=== PATIENT | female | born 1990 | race American Indian/Alaskan Native ===

== ENCOUNTER 2018-11-27 22:11 | Emergency (ER) | payer SELFPAY ==
[2018-11-27 22:19] VITALS: BP 157/92
--- NOTE | 2018-11-27 22:56 | Emergency Department Report ---
ED Abdominal Pain HPI - General Chief Complaint: Upper Respiratory Infection Stated Complaint: SORE THROAT/CONGESTED Time Seen by Provider: 11/27/18 22:26 Source: patient Mode of arrival: Ambulatory Limitations: No Limitations - Related Data Allergies Allergy/AdvReac Type Severity Reaction Status Date / Time chocolate flavor Allergy Unknown Verified 11/27/18 22:20 kiwi Allergy Unknown Verified 11/27/18 22:20 pineapple Allergy Unknown Verified 11/27/18 22:20 ED Review of Systems ROS: Stated complaint: SORE THROAT/CONGESTED Other details as noted in HPI ED Past Medical Hx - Past Medical History Previous Medical History?: No - Surgical History Past Surgical History?: Yes Additional Surgical History: - Social History Smoking Status: Never Smoker Substance Use Type: Alcohol ED Physical Exam - General Limitations: No Limitations ED Course Vital Signs 11/27/18 22:12 Temperature 98.0 F Pulse Rate 100 H Respiratory 18 Rate Blood Pressure 157/92 O2 Sat by Pulse 100 Oximetry Critical care attestation.: If time is entered above; I have spent that time in minutes in the direct care of this critically ill patient, excluding procedure time. ED Disposition Condition: Stable
[2018-11-27] MEDS ORDERED: TYLENOL/CODEINE PO ONE (22:58)
[2018-11-27] MEDS ORDERED: BENADRYL PO ONE (22:58)
[2018-11-27] MEDS ORDERED: DELTASONE PO ONE (22:58)
--- NOTE | 2018-11-27 23:00 | Emergency Department Report ---
Minor Respiratory - HPI Chief Complaint: Upper Respiratory Infection Stated Complaint: SORE THROAT/CONGESTED Time Seen by Provider: 11/27/18 22:26 Duration: greater than 1 week Pain Location: Throat, Other (neck pain 9/10) Severity: severe Minor Respiratory: Yes Rhinorrhea (nasal congestion), Yes Sore Throat (7/10), Yes Able to Tolerate Fluids, Yes Cough, No Ear Pain, No Sick Contacts, No Hemoptysis, No Chest Pain, No Shortness of Breath, No Fever Other History: This is a 28-year-old female here report that she is having cough and congestion for over week. She suggested decreased appetite. Sore throat and productive cough. She denies any fever. She is reporting body ache and her voice is hoarse. She is reporting that her neck hurts and denies any drooling, shortness of breath or chest pain. She said cough is worse at night. Sore throats and neck pain is worse with cough and an swallowing. Pain is achy and no alleviating factors. She did not take any medication prior to coming to the emergency room. Patient denies any medical problems. ED Review of Systems ROS: Stated complaint: SORE THROAT/CONGESTED Other details as noted in HPI Constitutional: denies: chills, fever Eyes: denies: eye discharge ENT: throat pain, congestion. denies: ear pain, dental pain Respiratory: cough. denies: shortness of breath, SOB with exertion, SOB at rest, stridor, wheezing Cardiovascular: denies: chest pain, palpitations, dyspnea on exertion, edema, syncope Gastrointestinal: denies: abdominal pain, nausea, vomiting, hematemesis, hematochezia Genitourinary: denies: dysuria, hematuria Musculoskeletal: myalgia. denies: back pain, joint swelling, arthralgia Skin: denies: rash Neurological: denies: headache, numbness, paresthesias, abnormal gait, vertigo ED Past Medical Hx - Past Medical History Previous Medical History?: No - Surgical History Past Surgical History?: Yes Additional Surgical History: - Family History Family history: hypertension - Social History Smoking Status: Never Smoker Substance Use Type: Alcohol - Medications Home Medications: Home Medications Medication Instructions Recorded Confirmed Last Taken Type Cetirizine HCl [ZyrTEC] 10 mg PO QAM 14 Days #14 capsule 11/28/18 Unknown Rx Fluticasone [Flonase] 1 spray NS QDAY 14 Days #1 bottle 11/28/18 Unknown Rx Ibuprofen [Motrin] 800 mg PO Q8HR PRN #12 tablet 11/28/18 Unknown Rx guaiFENesin/CODEINE [Robitussin AC] 10 ml PO QHS PRN #70 oral.liqd 11/28/18 Unknown Rx predniSONE [Prednisone] 10 mg PO QAM 6 Days #1 tab.ds.pk 11/28/18 Unknown Rx Minor Respiratory Exam - Exam General: Vital signs noted. No distress. Alert and acting appropriately. This is 28-year-old female well-nourished well-developed in no acute distress. Patient is nontoxic in appearance HEENT: Yes Pharyngeal Erythema (mild erythema), Yes Moist Mucous Membranes (uvula midline and no DESK REPRESENTATIVE), Yes Rhinorrhea (nasal congestion and runny nose), Yes Frontal Tenderness (bilateral), No Pharyngeal Exudates, No Conjuctival Injection, No Maxillary Tenderness Ear: Neither TM Bulge (bilateral TM congested), Neither TM Erythema, Neither EAC Pain, Neither EAC Discharge Neck: Yes Supple (full range of motion, nontender to palpate C-spine ), No Adenopathy Lungs: Yes Good Air Exchange, Yes Cough (congested cough), No Wheezes, No Ronchi, No Stridor, No Labored Respirations, No Retractions Heart: Yes Regular (S1 and S2.), No Murmur Abdomen: Yes Normal Bowel Sounds (normal bowel sounds in all quadrants), No Tenderness (nontender to palpate in all quadrants, no guarding or rebound tenderness.), No Peritoneal Signs Skin: No Rash, No Edema Neurologic: Alert and oriented 3, no deficits. Musculoskeletal: Unremarkable. No cce. + 2 pulses in all extremities, no neurovascular compromise ED Course Vital Signs 11/27/18 22:12 Temperature 98.0 F Pulse Rate 100 H Respiratory 18 Rate Blood Pressure 157/92 O2 Sat by Pulse 100 Oximetry - Reevaluation(s) Reevaluation #1: 11/27/18 23:31 Patient given Tylenol with codeine syrup 10 mL, Benadryl 50 mg by mouth and Deltasone 60 mg by mouth for cough and cold symptoms. Reevaluation #2: 11/28/18 00:33 Patient states she is feeling better. Pain is better. Strep was negative and x-rays normal. ED Medical Decision Making - Lab Data Lab Results 11/27/18 Range/Units 22:57 Group A Strep Rapid Negative (Negative) - Radiology Data Radiology results: report reviewed Two-view chest x-ray dictated by radiologist and report reviewed by myself. Please see details below Findings [facility] [address] [place] [address] XRay Report Signed Patient: DENZEL HURLEY MR#: [id number] : 1990 Acct:[id number] Age/Sex: 28 / F ADM Date: 11/27/18 Loc: ED Attending Dr: Ordering Physician: EREN SERNA Date of Service: 11/27/18 Procedure(s): XR chest routine 2V Accession Number(s): [id number] cc: EREN SERNA Fluoro Time In Minutes: FINAL REPORT EXAM: XR CHEST ROUTINE 2V HISTORY: cough and chills 10 days TECHNIQUE: Two view chest PA and lateral PRIORS: None. FINDINGS: Cardiac and mediastinal contours are unremarkable. No focal pulmonary infiltrate is identified. No pleural fluid collection seen. Pulmonary vasculature is unremarkable. IMPRESSION: Negative two-view chest Transcribed By: JINA Dictated By: GABRIELA CEDILLO MD Electronically Authenticated By: GABRIELA CEDILLO MD Signed Date/Time: 11/27/182347 DD/ 49 TD/TT: 11/27/182349 - Medical Decision Making This is a 28-year-old female here complaining of cold and cough symptoms. Physical finding for sinusitis with cough, pharyngitis. Strep is negative and chest x-ray reveals normal findings. Please see x-ray results under report section. Patient was given Deltasone 60 mg by mouth, Benadryl 50 mg by mouth and Tylenol with codeine 10 mL by mouth. She is feeling better. Vital signs stable she is afebrile. Patient discharged home with her significant other with prescription for Augmentin, Flonase, Zyrtec, Motrin and prednisone Dosepak. I explained to her the results of her x-ray and also strep test she was understanding and also inform her that she is to follow-up with her primary care physician in 2-3 days. - Differential Diagnosis PNA, bronchitis, strep, sinusitis, urinary cough and congestion Critical care attestation.: If time is entered above; I have spent that time in minutes in the direct care of this critically ill patient, excluding procedure time. ED Disposition Clinical Impression: Cough in adult Sinusitis, acute Qualifiers: Sinusitis location: unspecified location Recurrence: not specified as recurrent Qualified Code(s): J01.90 - Acute sinusitis, unspecified Pharyngitis Qualifiers: Pharyngitis/tonsillitis etiology: unspecified etiology Qualified Code(s): J02.9 - Acute pharyngitis, unspecified Disposition: TO HOME OR SELFCARE Is pt being admited?: No Does the pt Need Aspirin: No Condition: Stable Instructions: Acute Cough (ED), Sinusitis (ED), Pharyngitis (ED) Additional Instructions: Please take antibiotic as prescribed Follow-up with primary care physician in 2-3 days Take Motrin as prescribed for pain but take with food Take Zyrtec and Flonase to relieve nasal and ear congestion Take Medrol Dosepak and guaifenesin with codeine to help with cough but please do not drive or operate heavy machinery while taking cough medicine as this medication causes drowsiness If your condition worsens to include difficulty breathing, swallowing, chest pain, nausea and vomiting and fever does not relief with Motrin please return to the emergency room [facility]. Gargle with warm salt water and this will help to relieve sore throat Referrals: QUYEN HAY MD [Primary Care Provider] - 2-3 Days [facility] [Outside] - 2-3 Days Forms: Accompanied Note, Work/School Release Form(ED)
--- NOTE | 2018-11-27 23:48 | XRay Report ---
FINAL REPORT EXAM: XR CHEST ROUTINE 2V HISTORY: cough and chills 10 days TECHNIQUE: Two view chest PA and lateral PRIORS: None. FINDINGS: Cardiac and mediastinal contours are unremarkable. No focal pulmonary infiltrate is identified. No pleural fluid collection seen. Pulmonary vasculature is unremarkable. IMPRESSION: Negative two-view chest
== END 2018-11-28 01:00 | disposition home or self-care (01) ==
LOC: ED 22:11
DX: J01.90 Acute sinusitis, unspecified (principal); J02.9 Acute pharyngitis, unspecified; Z91.018 Allergy to other foods; M79.10 Myalgia, unspecified site
CPT/HCPCS: 71046; 87116; 87430; 99284; J7512

== ENCOUNTER 2019-09-06 22:50 | Emergency (ER) | payer SELFPAY ==
[2019-09-06 23:54] LABS: Basophils % (Auto) 0.3 % (0.0-1.8); Eosinophils # (Auto) 0.1 K/mm3 (0.0-0.4); Eosinophils % (Auto) 1.5 % (0.0-4.3); Hematocrit 35.7 % (30.3-42.9); Hemoglobin 11.9 gm/dl (10.1-14.3); Lymphocytes # (Auto) 2.9 K/mm3 (1.2-5.4); Lymphocytes % (Auto) 42.6 % (13.4-35.0); Mean Corpuscular HGB Conc 33 % (30-34); Mean Corpuscular Volume 88 fl (79-97); Monocytes # (Auto) 0.4 K/mm3 (0.0-0.8); Monocytes % (Auto) 6.1 % (0.0-7.3); Platelet Count 238 K/mm3 (140-440); Red Blood Count 4.08 M/mm3 (3.65-5.03); Red Cell Distribution Width 14.8 % (13.2-15.2)
[2019-09-07 00:13] LABS: Alanine Aminotransferase 7 units/L (7-56); Albumin 4.3 g/dL (3.9-5); BUN/Creatinine Ratio 10; Blood Urea Nitrogen 6 mg/dL (7-17); Calcium 9.3 mg/dL (8.4-10.2); Hemolysis Index 4
[2019-09-07] MEDS ORDERED: METOCLOPRAMIDE 10 MG TAB PO ONE (01:38)
[2019-09-07] MEDS ORDERED: ACETAMINOPHEN 500 MG TAB PO ONE (01:38)
--- NOTE | 2019-09-07 01:40 | Emergency Department Report ---
HPI - General Chief Complaint: Abdominal Pain Time Seen by Provider: 09/07/19 01:24 - HPI HPI: Room 8 The patient is a 28-year-old female presenting with chief complaint of nausea vomiting and abdominal pain. The patient states she's been "not feeling good" for the past 2-3 weeks. Patient states his symptoms include feeling lightheaded with nausea and vomiting. The patient states for the past 2-3 days she's had some suprapubic and right-sided discomfort. Patient denies dysuria or hematuria. Patient states she noticed some clear white discharge in the toilet bowl. Patient denies vaginal bleeding. Patient says her last cycle occurred from July 29 through August 06 and she is usually regular. The patient states she took a prexy test at home 2 weeks ago and it was negative. Location: [See above] Duration: [See above] Quality: [See above] Severity: [See above] Timing: [See above] Context: [See above] Modifying factors: [See above] Associated signs and symptoms: [see above] ED Past Medical Hx - Past Medical History Previous Medical History?: No - Surgical History Past Surgical History?: Yes Additional Surgical History: , right wrist - Family History Family history: no significant - Social History Smoking Status: Never Smoker Substance Use Type: Alcohol (occasional), Marijuana - Medications Home Medications: Home Medications Medication Instructions Recorded Confirmed Last Taken Type Cetirizine HCl [ZyrTEC] 10 mg PO QAM 14 Days #14 capsule 11/28/18 Unknown Rx Fluticasone [Flonase] 1 spray NS QDAY 14 Days #1 bottle 11/28/18 Unknown Rx Ibuprofen [Motrin] 800 mg PO Q8HR PRN #12 tablet 11/28/18 Unknown Rx guaiFENesin/CODEINE [Robitussin AC] 10 ml PO QHS PRN #70 oral.liqd 11/28/18 Unknown Rx predniSONE [Prednisone] 10 mg PO QAM 6 Days #1 tab.ds.pk 11/28/18 Unknown Rx Metoclopramide [Reglan] 10 mg PO TID PRN #20 tab 09/07/19 Unknown Rx Nitrofurantoin Sutter/M-Cryst 100 mg PO Q12HR #20 capsule 09/07/19 Unknown Rx [Macrobid CAP] ED Review of Systems ROS: Stated complaint: ABDOMINAL PAIN/FATIGUE,VOMITING Other details as noted in HPI Constitutional: no symptoms reported Eyes: denies: eye pain ENT: denies: throat pain Respiratory: no symptoms reported Cardiovascular: denies: chest pain Endocrine: no symptoms reported Gastrointestinal: abdominal pain, nausea, vomiting Genitourinary: denies: dysuria, hematuria, abnormal menses Musculoskeletal: denies: back pain Neurological: denies: headache Physical Exam - Physical Exam Vital Signs: Vital Signs 09/06/19 09/07/19 23:10 01:25 Temperature 98.1 F 98.6 F Pulse Rate 74 78 Respiratory 20 12 Rate Blood Pressure 129/64 Blood Pressure 124/64 [Left] O2 Sat by Pulse 100 100 Oximetry Physical Exam: GENERAL: The patient is well-developed well-nourished female lying on stretcher not appearing to be in acute distress. [] HEENT: Normocephalic. Atraumatic. Extraocular motions are intact. Patient has moist mucous membranes. NECK: Supple. Trachea midline CHEST/LUNGS: Clear to auscultation. There is no respiratory distress noted. HEART/CARDIOVASCULAR: Regular. There is no tachycardia. There is no gallop rub or murmur. ABDOMEN: Abdomen is soft, nontender. Patient has normal bowel sounds. There is no abdominal distention. SKIN: There is no rash. There is no edema. There is no diaphoresis. NEURO: The patient is awake, alert, and oriented. The patient is cooperative. The patient has normal speech MUSCULOSKELETAL: There is no CVA tenderness. There is no evidence of acute injury. ED Course Vital Signs 09/06/19 09/07/19 23:10 01:25 Temperature 98.1 F 98.6 F Pulse Rate 74 78 Respiratory 20 12 Rate Blood Pressure 129/64 Blood Pressure 124/64 [Left] O2 Sat by Pulse 100 100 Oximetry ED Medical Decision Making - Lab Data Result diagrams: 09/06/19 23:15 09/06/19 23:15 Laboratory Tests 09/06/19 09/06/19 09/06/19 23:15 23:15 23:15 WBC 6.8 RBC 4.08 Hgb 11.9 Hct 35.7 MCV 88 MCH 29 MCHC 33 RDW 14.8 Plt Count 238 Lymph % (Auto) 42.6 H Sutter % (Auto) 6.1 Eos % (Auto) 1.5 Baso % (Auto) 0.3 Lymph # 2.9 Sutter # 0.4 Eos # 0.1 Baso # 0.0 Seg Neutrophils % 49.5 Seg Neutrophils # 3.4 Sodium 139 Potassium 3.9 Chloride 103.4 Carbon Dioxide 25 Anion Gap 15 BUN 6 L Creatinine 0.6 L Estimated GFR > 60 BUN/Creatinine Ratio 10 Glucose 90 Calcium 9.3 Total Bilirubin 0.30 AST 13 ALT 7 Alkaline Phosphatase 52 Total Protein 7.5 Albumin 4.3 Albumin/Globulin Ratio 1.3 HCG, Qual Positive HCG, Quant Urine Color Urine Turbidity Urine pH Ur Specific [place] Urine Protein Urine Glucose (UA) Urine Ketones Urine Blood Urine Nitrite Urine Bilirubin Urine Urobilinogen Ur Leukocyte Esterase Urine WBC (Auto) Urine RBC (Auto) U Epithel Cells (Auto) Urine Bacteria (Auto) Urine Mucus 09/07/19 09/07/19 00:00 02:48 WBC RBC Hgb Hct MCV MCH MCHC RDW Plt Count Lymph % (Auto) Sutter % (Auto) Eos % (Auto) Baso % (Auto) Lymph # Sutter # Eos # Baso # Seg Neutrophils % Seg Neutrophils # Sodium Potassium Chloride Carbon Dioxide Anion Gap BUN Creatinine Estimated GFR BUN/Creatinine Ratio Glucose Calcium Total Bilirubin AST ALT Alkaline Phosphatase Total Protein Albumin Albumin/Globulin Ratio HCG, Qual HCG, Quant 565.0 H Urine Color Yellow Urine Turbidity Slightly-cloudy Urine pH 6.0 Ur Specific [place] 1.014 Urine Protein <15 mg/dl Urine Glucose (UA) Neg Urine Ketones Neg Urine Blood Sm Urine Nitrite Neg Urine Bilirubin Neg Urine Urobilinogen < 2.0 Ur Leukocyte Esterase Lg Urine WBC (Auto) 119.0 H Urine RBC (Auto) 36.0 U Epithel Cells (Auto) 3.0 Urine Bacteria (Auto) 1+ Urine Mucus Few - Radiology Data Radiology results: report reviewed (pelvic ultrasound), image reviewed (pelvic ultrasound) [facility] [address] [place] [address] Ultrasound Report Signed Patient: DENZEL HURLEY R#: [id number] : 1990 Acct:[id number] Age/Sex: 28 / F ADM Date: 09/06/19 Loc: ED Attending Dr: Ordering Physician: ALFRED SWIFT MD Date of Service: 09/07/19 Procedure(s): US OB transvaginal Accession Number(s): [id number] cc: ALFRED SWIFT MD Pelvic ultrasound INDICATION: , abdominal pain COMPARISON: None TECHNIQUE: Transabdominal and endovaginal FINDINGS: On transabdominal study the uterus measures 11.3 x 5.9 x 7.4 cm. The endometrial cavity is prominent with a diameter of 2.6 cm. However, I do not see evidence of intrauterine . Only a trace of fluid is seen in the cervical canal and not in the uterine body or fundus. Right ovary measures 3.6 cm in length and shows a 15 mm mildly complex cyst. Left ovary measures 3.4 cm in length and shows a 17 mm mildly complex cyst. No free fluid is seen. IMPRESSION: No intrauterine can be verified. Small bilateral ovarian cysts are seen. Ectopic cannot be excluded though I do not see strong evidence of that process. Clinical correlation is suggested. Signer Name: Hira Resendiz MD Signed: 09/07/2019 3:45 AM Workstation Name: [email or web address] Transcribed By: GJ Dictated By: Hira Resendiz MD Electronically Authenticated By: Hira Resendiz MD Signed Date/Time: 09/07/19344 DD/ 2 TD/TT: - Differential Diagnosis , ectopic , UTI Critical care attestation.: If time is entered above; I have spent that time in minutes in the direct care of this critically ill patient, excluding procedure time. ED Disposition Clinical Impression: , UTI (urinary tract infection), Abdominal pain Disposition: - TO HOME OR SELFCARE Is pt being admited?: No Does the pt Need Aspirin: No Condition: Stable Instructions: Abdominal Pain (ED), Ectopic (ED) Additional Instructions: Urine hCG level today was 565 the need to return to the hospital or follow-up with your [facility] in 48 hours (09/09/2019) for reevaluation. Return to the emergency department should you develop worsening symptoms, inability to tolerate food or liquids, high fever or any other concerns Prescriptions: Nitrofurantoin Sutter/M-Cryst [Macrobid CAP] 100 mg PO Q12HR #20 capsule Metoclopramide [Reglan] 10 mg PO TID PRN #20 tab PRN Reason: Nausea Referrals: [facility] [Provider Group] - 2-3 Days (You should follow up with [facility] if you do not already have a personal auto body service mechanic for reevaluation in 48 hours) Time of Disposition: 04:02
[2019-09-07 03:27] LABS: Bacteria,Urine 1+ /HPF (Negative); Bilirubin,Urine NEG (Negative); Blood,Urine SM (Negative); Color,Urine Yellow (Yellow); Mucus,Urine FEW /HPF; Protein,Urine <15 mg/dL mg/dL (Negative); Urobilinogen,Urine < 2.0 mg/dL (<2.0)
--- NOTE | 2019-09-07 03:50 | Ultrasound Report ---
Pelvic ultrasound INDICATION: , abdominal pain COMPARISON: None TECHNIQUE: Transabdominal and endovaginal FINDINGS: On transabdominal study the uterus measures 11.3 x 5.9 x 7.4 cm. The endometrial cavity is prominent with a diameter of 2.6 cm. However, I do not see evidence of intrauterine . Only a trace of fluid is seen in the cervical canal and not in the uterine body or fundus. Right ovary measures 3.6 cm in length and shows a 15 mm mildly complex cyst. Left ovary measures 3.4 cm in length and shows a 17 mm mildly complex cyst. No free fluid is seen. IMPRESSION: No intrauterine can be verified. Small bilateral ovarian cysts are seen. Ectopi c cannot be excluded though I do not see strong evidence of that process. Clinical correlat ion is suggested. Signer Name: Hira Resendiz MD Signed: 09/07/2019 3:45 AM Workstation Name: [id number]
[2019-09-07 04:41] VITALS: BP 126/77
== END 2019-09-07 04:20 | disposition home or self-care (01) ==
LOC: ED 22:50
DX: O23.41 Unspecified infection of urinary tract in pregnancy, first trimester (principal); O99.321 Drug use complicating pregnancy, first trimester; F12.10 Cannabis abuse, uncomplicated; Z79.899 Other long term (current) drug therapy; Z98.890 Other specified postprocedural states; Z91.018 Allergy to other foods; Z3A.01 Less than 8 weeks gestation of pregnancy
CPT/HCPCS: 36415; 76801; 76817; 80053; 81001; 84702; 84703; 85025

== ENCOUNTER 2019-09-10 19:00 | Emergency (ER) | payer SELFPAY ==
--- NOTE | 2019-09-10 21:39 | Event Note ---
ED Screening Note Date of service: 09/10/19 Time: 21:36 ED Screening Note: 28 y o female presents for repeat quant was seen for n/v and pelv cramping L m p: 07/29/19 last quant 595 This initial assessment/diagnostic orders/clinical plan/treatment(s) is/are subject to change based on patients health status, clinical progression and re- assessment by fellow clinical providers in the ED. Further treatment and workup at subsequent clinical providers discretion. Patient/guardian urged not to elope from the ED as their condition may be serious if not clinically assessed and managed. Initial orders include: quant ordered
--- NOTE | 2019-09-11 01:39 | Emergency Department Report ---
ED Female HPI - General Chief complaint: Urogenital-Female Stated complaint: UTI/FOLLW UP Time Seen by Provider: 09/10/19 23:56 Source: patient Mode of arrival: Ambulatory Limitations: No Limitations - History of Present Illness Initial comments: This is a 28-year-old female nontoxic, well nourished in appearance, no acute signs of distress presents to the ED with c/o of vaginal discharge and repeat of HCG. Patient denies any vaginal bleeding. Stated has been taking Macrobid for UTI. Patient denies any vaginal pain or swelling. Patient denies any vaginal ulcers or lesions. Patient denies any nausea, vomiting, chest pain, shortness of breathe, fever, chills, headache, back pain, numbness, tingling, stiff neck. Deneis any pelvic or abdominal pain. Patient denies any urinary symptoms. Patient denies any drug allergies or PMH. MD Complaint: vaginal discharge -: days(s) Severity scale (0 -10): 0 Worsens with: none Are you Now?: Yes Associated Symptoms: vaginal discharge. denies: vaginal bleeding, abdominal pain, nausea/vomiting, fever/chills, headaches, loss of appetite, dysuria, hematuria, rash, seizure, shortness of breath, syncope, weakness - Related Data Previous Rx's Medication Instructions Recorded Last Taken Type Cetirizine HCl [ZyrTEC] 10 mg PO QAM 14 Days #14 capsule 11/28/18 Unknown Rx Fluticasone [Flonase] 1 spray NS QDAY 14 Days #1 bottle 11/28/18 Unknown Rx Ibuprofen [Motrin] 800 mg PO Q8HR PRN #12 tablet 11/28/18 Unknown Rx guaiFENesin/CODEINE [Robitussin AC] 10 ml PO QHS PRN #70 oral.liqd 11/28/18 Unknown Rx predniSONE [Prednisone] 10 mg PO QAM 6 Days #1 tab.ds.pk 11/28/18 Unknown Rx Metoclopramide [Reglan] 10 mg PO TID PRN #20 tab 09/07/19 Unknown Rx Nitrofurantoin [place]/M-Cryst 100 mg PO Q12HR #20 capsule 09/07/19 Unknown Rx [Macrobid CAP] metroNIDAZOLE [metroNIDAZOLE 0.75% 45 gm TP DAILY 5 Days gel..gram. 09/11/19 Unknown Rx gel TOPICAL] Allergies Allergy/AdvReac Type Severity Reaction Status Date / Time chocolate flavor Allergy Unknown Verified 11/27/18 22:20 kiwi Allergy Unknown Verified 11/27/18 22:20 pineapple Allergy Unknown Verified 11/27/18 22:20 ED Review of Systems ROS: Stated complaint: UTI/FOLLW UP Other details as noted in HPI Constitutional: denies: chills, fever Eyes: denies: eye pain, eye discharge, vision change ENT: denies: ear pain, throat pain Respiratory: denies: cough, shortness of breath, wheezing Cardiovascular: denies: chest pain, palpitations Endocrine: no symptoms reported Gastrointestinal: denies: abdominal pain, nausea, diarrhea Genitourinary: discharge. denies: urgency, dysuria, frequency, hematuria, abnormal menses, dyspareunia Musculoskeletal: denies: back pain, joint swelling, arthralgia Skin: denies: rash, lesions Neurological: denies: headache, weakness, paresthesias Psychiatric: denies: anxiety, depression Hematological/Lymphatic: denies: easy bleeding, easy bruising ED Past Medical Hx - Past Medical History Previous Medical History?: No - Surgical History Past Surgical History?: No Additional Surgical History: , right wrist - Social History Smoking Status: Never Smoker Substance Use Type: None - Medications Home Medications: Home Medications Medication Instructions Recorded Confirmed Last Taken Type Cetirizine HCl [ZyrTEC] 10 mg PO QAM 14 Days #14 capsule 11/28/18 Unknown Rx Fluticasone [Flonase] 1 spray NS QDAY 14 Days #1 bottle 11/28/18 Unknown Rx Ibuprofen [Motrin] 800 mg PO Q8HR PRN #12 tablet 11/28/18 Unknown Rx guaiFENesin/CODEINE [Robitussin AC] 10 ml PO QHS PRN #70 oral.liqd 11/28/18 Unknown Rx predniSONE [Prednisone] 10 mg PO QAM 6 Days #1 tab.ds.pk 11/28/18 Unknown Rx Metoclopramide [Reglan] 10 mg PO TID PRN #20 tab 09/07/19 Unknown Rx Nitrofurantoin [place]/M-Cryst 100 mg PO Q12HR #20 capsule 09/07/19 Unknown Rx [Macrobid CAP] metroNIDAZOLE [metroNIDAZOLE 0.75% 45 gm TP DAILY 5 Days gel..gram. 11/05/19 Unknown Rx gel TOPICAL] ED Physical Exam - General Limitations: No Limitations General appearance: alert, in no apparent distress - Head Head exam: Present: atraumatic, normocephalic - Neck Neck exam: Present: normal inspection, full ROM. Absent: tenderness, meningismus, lymphadenopathy - GI/Abdominal GI/Abdominal exam: Present: soft, normal bowel sounds. Absent: distended, tenderness, guarding, rebound, rigid, diminished bowel sounds - External exam: Present: normal external exam. Absent: erythema, swelling, lesions, lacerations, ecchymosis, bleeding Speculum exam: Present: normal speculum exam, cervical discharge, other (OS closed. Female ethylbenzene oxidizer Pascual RN present during exam). Absent: erythema, vaginal discharge, vaginal bleeding, foreign body, tissue, laceration Bi-manual exam: Present: normal bi-manual exam, other (OS closed. Female ethylbenzene oxidizer Pascual SHARMA present during exam). Absent: cervical motion tendernes, adnexal tenderness, adnexal mass, uterine enlargement, uterine tenderness - Extremities Exam Extremities exam: Present: normal inspection, full ROM - Back Exam Back exam: Present: normal inspection, full ROM. Absent: tenderness, CVA tenderness (R), CVA tenderness (L), muscle spasm, paraspinal tenderness, vertebral tenderness, rash noted - Neurological Exam Neurological exam: Present: alert, oriented X3, normal gait - Psychiatric Psychiatric exam: Present: normal affect, normal mood - Skin Skin exam: Present: warm, dry, intact, normal color. Absent: rash ED Course Vital Signs 09/10/19 09/10/19 19:34 21:34 Temperature 98.4 F 98.4 F Pulse Rate 81 82 Respiratory 18 18 Rate Blood Pressure 133/63 133/63 O2 Sat by Pulse 100 99 Oximetry - Reevaluation(s) Reevaluation #1: 09/11/19 01:45 Patient is speaking in full sentences with no signs of distress noted. ED Medical Decision Making - Medical Decision Making 28-year-old female that presents with hCG quantitative test repeated as well as bacterial vaginosis. Patient is stable and was examined by me. Patient will be discharged with topical Metronidazole. Patient was instructed to Follow-up with a OBGYN doctor in 3-5 days or if symptoms worsen and continue return to emergency room as soon as possible. At time of discharge, the patient does not seem toxic or ill in appearance. No acute signs of distress noted. Patient agrees to discharge treatment plan of care. No further questions noted by the patient. Critical care attestation.: If time is entered above; I have spent that time in minutes in the direct care of this critically ill patient, excluding procedure time. ED Disposition Clinical Impression: Elevated serum hCG, Bacterial vaginosis Disposition: TO HOME OR SELFCARE Is pt being admited?: No Does the pt Need Aspirin: No Condition: Stable Instructions: Bacterial Vaginosis (ED), Metronidazole (Vaginal) Additional Instructions: Follow-up with a OBGYN doctor in 3-5 days or if symptoms worsen and continue return to emergency room as soon as possible. Prescriptions: metroNIDAZOLE [metroNIDAZOLE 0.75% gel TOPICAL] 45 gm TP DAILY 5 Days gel..gram. Referrals: PRIMARY CARE, [Referring] - 3-5 Days VESTA SHEPPARD MD [Staff Physician] - 3-5 Days [facility] [Provider Group] - 3-5 Days Forms: Work/School Release Form(ED)
[2019-09-11 02:17] VITALS: BP 131/83
== END 2019-09-11 02:13 | disposition home or self-care (01) ==
LOC: ED 19:00
DX: N76.0 Acute vaginitis (principal); R89.1 Abnormal level of hormones in specimens from other organs, systems and tissues
CPT/HCPCS: 36415; 84702; 87210; 87591